=== PATIENT | male | born 1935 | race Caucasian/White ===

== ENCOUNTER 2019-04-14 11:55 | Outpatient (CLI) | payer OTHER ==
[~2019-04-14] VITALS: Ht 162.6 cm; Wt 64.0 kg
[2019-04-14 11:04] VITALS: BP 123/58; PULSE 90; RESP 16
[2019-04-14 11:12] VITALS: Ht 162.6 cm; Wt 64.0 kg
[~2019-04-14 11:55] MED LIST: APIX5TAB PO; FER325 PO; FURO40TA4 PO; LEVO75TA5 PO; LIDOCAINE 1% (MPF) 30 ML INJ ONE; TAMS-14 PO
== END 2019-04-14 13:00 | disposition home or self-care (01) ==
LOC: LAB 11:55 → SDS 11:56 → LAB 13:00
PROVIDERS: ATTEND Thoracic Surgery (Cardiothoracic Vascular Surgery)
DX: Z45.010 Encounter for checking and testing of cardiac pacemaker pulse generator [battery] (principal); Z53.8 Procedure and treatment not carried out for other reasons
CPT/HCPCS: 71045; 93005